=== PATIENT | male | born 1965 | race Caucasian/White ===

== ENCOUNTER 2018-06-06 09:25 | Day surgery (SDC) | payer OTHER ==
[~2018-06-06] VITALS: Ht 165.1 cm; Wt 65.8 kg
[2018-06-06] MEDS ORDERED: TRAM50TA PO (09:32)
[2018-06-06] MEDS ORDERED: IBUP-1027 PO (09:33)
[2018-06-06] MEDS ORDERED: IV RINGERS,LACTATED 1000ML 1,000 ML IV SCH ×2 (09:34→09:46)
[2018-06-06] MEDS ORDERED: LIDOCAINE 1% PF 2 ML VIAL. ID PRN ×2 (09:45→10:00)
[2018-06-06] MEDS ORDERED: fentaNYL PF VIAL 100 MCG/2 ML VIAL IV PRN ×4 (09:45→10:00)
[2018-06-06] MEDS ORDERED: PROCHLORPERAZINE 10 MG/2 ML VIAL. IV PRN (10:00)
[2018-06-06] MEDS ORDERED: MORPHINE SULFATE 2 MG/ML VIAL. IV PRN (10:00)
[2018-06-06] MEDS ORDERED: HYDROmorphone 2 MG/ML VIAL IV PRN (10:00)
[2018-06-06] MEDS ORDERED: ONDANSETRON PF 4 MG/2 ML VIAL. IV PRN (10:00)
[2018-06-06] MEDS ORDERED: CHLORHEXIDINE 0.12% 15 ML MOUTHWASH. ONE (10:27)
[2018-06-06] MEDS ORDERED: OXYMETAZOLINE 0.05% NASAL SPRAY 30ML BOTTLE. NS ONE (10:27)
[2018-06-06] MEDS ORDERED: BUPIVACAINE 0.5% 50 ML VIAL. ONE (10:28)
[2018-06-06] MEDS ORDERED: MIDAZOLAM HCL/PF 2 MG/2 ML VIAL. IV PRN (10:30)
[2018-06-06] MEDS ORDERED: SEVOFLURANE > 120 MINUTES. IH ONE (10:35)
[2018-06-06] MEDS ORDERED: GLYCOPYRROLATE 1 MG/5 ML VIAL. ONE ×2 (10:36→12:54)
[2018-06-06] MEDS ORDERED: NEOSTIGMINE METHYLSULFATE 5 MG/5 ML SYRINGE. ONE (10:36)
[2018-06-06] MEDS ORDERED: DEXAMETHASONE SOD PHOS 20 MG/5 ML VIAL. ONE (10:36)
[2018-06-06] MEDS ORDERED: ROCURONIUM 50 MG/5 ML VIAL. ONE (10:36)
[2018-06-06] MEDS ORDERED: PROPOFOL 20 ML IV ONE (10:36)
[2018-06-06] MEDS ORDERED: fentaNYL PF VIAL 100 MCG/2 ML VIAL ONE ×2 (10:36→13:24)
[2018-06-06] MEDS ORDERED: LIDOCAINE 2% PF Vial for OR 5 ML VIAL. ONE (10:36)
[2018-06-06] MEDS ORDERED: MIDAZOLAM HCL/PF 2 MG/2 ML VIAL. ONE (10:36)
[2018-06-06] MEDS ORDERED: ONDANSETRON PF 4 MG/2 ML VIAL. ONE (10:37)
[2018-06-06] MEDS ORDERED: SUCCINYLCHOLINE 200 MG/10 ML VIAL. ONE (10:37)
[2018-06-06] MEDS ORDERED: BACITRACIN 50,000 UNIT VIAL. IRR ONE ×2 (11:38→11:39)
[2018-06-06] MEDS ORDERED: GELATIN SPONGE SIZE 100. ONE (12:36)
[2018-06-06] MEDS ORDERED: MUPIROCIN 2 % NASAL OINTMENT 22GM TUBE. NS ONE (12:56)
[2018-06-06] MEDS ORDERED: ESMOLOL 100 MG/10 ML VIAL. IV ONE (13:00)
[2018-06-06] MEDS ORDERED: PHENYLEPHRINE in 0.9% NACL PF 1 MG/10 ML SYRINGE. IV ONE (13:05)
[2018-06-06] MEDS ORDERED: ePHEDrine PF IN SALINE 50 MG/5 ML DISP.SYRIN IV ONE (14:25)
--- NOTE | 2018-06-06 14:54 | PDOC4 ---
OPERATIVE NOTE Date: Date: Jun 06, 2018 Pre-Op Diagnosis: right and left mandibular fractures open right mandibular fracture non restorable dentition 3,4,6,7,8,12,13,20,21,22,28,29 Post-Op Diagnosis: right and left mandibular fractures open right mandibular fracture non restorable dentition 3,4,6,7,8,12,13,20,21,22,28,29 Procedure Performed: CR left subcondylar mandible fracture ORIF right mandibular fracture extraction of non restorable teeth # 3,4,6,7,8,12,13,20,21,22,28,29 Surgeon: eder Anesthesia Type: topher Blood Loss: 50 Specimans Obtained: teeth disposed of in OR Findings: non restorable dentition Grossly mobile right and left mandible fractures Complications: none noted in OR Operative Note: see dictation ORIF right and CR left mandibular fractures Extraction of non restorable dentition 3,4,6,7,8,12,13,20,21,22,28,29 BRENDAN HOOKER DMD Jun 06, 2018 14:54
[2018-06-06] MEDS ORDERED: HYDROcodone/APAP 5/325MG 1 TAB TABLET PO ONE (15:30)
[2018-06-06] MEDS ORDERED: METR500T PO (15:36)
[2018-06-06] MEDS ORDERED: AMOX1TAB61 PO (15:36)
[2018-06-06] MEDS ORDERED: CHLO15MO2 PO (15:37)
[2018-06-06] MEDS ORDERED: HYDR-971 PO (15:38)
[2018-06-06] MEDS ORDERED: ONDA4TAB7 PO (15:39)
[2018-06-06] MEDS ORDERED: IBUP200T44 PO (15:39)
[2018-06-06] MEDS ORDERED: MUPI22OI2 TP (15:41)
[2018-06-06] MEDS ORDERED: LACT1CAP29 PO (15:43)
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
[2018-06-06 16:00] VITALS: BP 115/78
== END 2018-06-06 17:08 ==
LOC: SURG 09:25
PROVIDERS: ATTEND Dentist Oral and Maxillofacial Surgery
DX: S02.622A Fracture of subcondylar process of left mandible, initial encounter for closed fracture (principal); S02.69XB Fracture of mandible of other specified site, initial encounter for open fracture; X58.XXXA Exposure to other specified factors, initial encounter; Y93.89 Activity, other specified; Y92.89 Other specified places as the place of occurrence of the external cause; Y99.8 Other external cause status; F41.9 Anxiety disorder, unspecified; F32.9 Major depressive disorder, single episode, unspecified; I10 Essential (primary) hypertension; Z79.2 Long term (current) use of antibiotics; Z79.1 Long term (current) use of non-steroidal anti-inflammatories (NSAID); Z79.899 Other long term (current) drug therapy; Z87.891 Personal history of nicotine dependence; Z98.890 Other specified postprocedural states
CPT/HCPCS: 21462; 41899; 87641; C1713; J0330; J0690; J1100; J2001; J2250; J2370; J2405; J2704; J2710; J3010; J3490; J7120; 36415; A7015; A4461; C1768